=== PATIENT | female | born 1960 | race Caucasian/White ===

== ENCOUNTER 2019-04-12 07:55 | Outpatient (CLI) | payer OTHER | END 2019-04-12 20:33 | disposition home or self-care (01) | LOC: SMA 07:55 | PROVIDERS: ATTEND Family Medicine | DX: Z12.31 Encounter for screening mammogram for malignant neoplasm of breast (principal) | CPT/HCPCS: 77067 ==

== ENCOUNTER 2019-04-19 07:59 | Outpatient (CLI) | payer OTHER | END 2019-04-19 21:11 | disposition home or self-care (01) | LOC: SUS 07:59 | PROVIDERS: ATTEND Family Medicine | DX: N63.11 Unspecified lump in the right breast, upper outer quadrant (principal) | CPT/HCPCS: 76641 ==